=== PATIENT | male | born 1945 | race Caucasian/White ===

== ENCOUNTER 2017-12-26 07:54 | Day surgery (SDC) | payer OTHER ==
[2017-12-23 10:30] VITALS: BP 138/73
[2017-12-23 10:59] LABS: BASOPHILS % (AUTO) 0.7 % (0.0-5.0); EOSINOPHILS % (AUTO) 4.9 % (0.0-8.0); HEMATOCRIT 45.6 % (42-54); LYMPHOCYTES % (AUTO) 29.7 % (21.0-51.0); MEAN CORPUSCULAR HEMOGLOBIN 30.4 pg (27.0-33.0); MEAN CORPUSCULAR HGB CONC 32.9 g/dL (32.0-36.0); MEAN CORPUSCULAR VOLUME 92.5 fL (79-99); MONOCYTES % (AUTO) 11.9 % (3.0-13.0); NEUTROPHILS % (AUTO) 52.8 % (40.0-77.0); NUCLEATED RED BLOOD CELLS 0.1 % (0.0-0.19); PLATELET COUNT (AUTO) 207 K/uL (130-400); RED BLOOD CELL COUNT(AUTO) 4.93 MIL/uL (4.50-6.20); WHITE BLOOD COUNT (AUTO) 6.1 K/uL (4.8-10.8)
[2017-12-23 11:02] LABS: APPEARANCE,URINE Clear (CLEAR); BILIRUBIN,URINE Negative (NEGATIVE); COLOR,URINE Yellow (YELLOW); GLUCOSE, URINE (UA) Negative (NEGATIVE); KETONES,URINE Negative (NEGATIVE); LEUKOCYTE ESTERASE ,URINE Negative (NEGATIVE); NITRATE,URINE Negative (NEGATIVE); OCCULT BLOOD,URINE Negative (NEGATIVE); PROTEIN,URINE Negative (NEGATIVE); UROBILINOGEN,URINE 0.2 mg/dL (0.2-1.0)
[2017-12-23 11:14] LABS: CREATININE 1.1 mg/dL (0.5-1.5); POTASSIUM 5.3 mmol/L (3.5-5.1)
[2017-12-23 11:19] LABS: INR 0.95 (0.85-1.15)
[~2017-12-26] VITALS: Ht 188 cm; Wt 110.3 kg
[2017-12-26] VITALS (16 sets, daily range): BP systolic 105–127; BP diastolic 60–74
[2017-12-26] MEDS: CEFTRIAXONE SODIUM 1 GM IVP SCH ×2 (05:00→11:05)
[~2017-12-26 07:54] MED LIST: AEC81 PO; ALLO100T PO; GABA-531 PO; GENTAMICIN 80 MG/NS 100 ML PB 100 ML IV SCH; LISI-617 PO; MULT1TAB70 PO; SILO8CAP2 PO
[2017-12-26] MEDS ORDERED: LACTATED RINGERS 1000ML 1,000 ML IV ONE (08:39)
[2017-12-26] MEDS ORDERED: LIDOCAINE PF 2% 5ML ABBOJECT ONE (11:06)
[2017-12-26] MEDS ORDERED: DEXAMETHASONE SOD PHOSPHATE 10MG/ML 1ML VIAL ONE (11:06)
[2017-12-26] MEDS ORDERED: MIDAZOLAM HCL 1 MG/ML 2ML VIAL ONE (11:07)
[2017-12-26] MEDS ORDERED: PROPOFOL 10 MG/ML 20ML VIAL IV ONE (11:07)
[2017-12-26] MEDS ORDERED: ONDANSETRON HCL 4 MG/2 ML VIAL ONE (11:07)
[2017-12-26] MEDS ORDERED: FENTANYL CITRATE PF 50 MCG/1 ML 2ML VIAL ONE ×2 (11:07→13:44)
[2017-12-26] MEDS ORDERED: EPHEDRINE SULFATE 50 MG/ML AMPULE ONE (11:14)
[2017-12-26] MEDS ORDERED: ROCURONIUM BROMIDE 10MG/1ML 5ML VL ONE (11:15)
[2017-12-26] MEDS ORDERED: GLYCOPYRROLATE 1 MG/5 ML SYRINGE ONE (12:42)
[2017-12-26] MEDS ORDERED: NEOSTIGMINE 5MG/5ML SYR IV ONE (12:42)
[2017-12-26] MEDS ORDERED: MEPERIDINE-PF 25 MG/ML SYG ONE (13:16)
[2017-12-26] MEDS ORDERED: ACETAMINOPHEN 325 MG TAB ONE (15:33)
== END 2017-12-26 15:45 | disposition home or self-care (01) ==
LOC: DAH 07:54
PROVIDERS: ATTEND Urology
DX: N40.1 Benign prostatic hyperplasia with lower urinary tract symptoms (principal); I10 Essential (primary) hypertension; Z98.890 Other specified postprocedural states; E66.9 Obesity, unspecified; M48.061 Spinal stenosis, lumbar region without neurogenic claudication
CPT/HCPCS: 36415 ×2; 52648; 80048; 81003; 84132; 85025; 85610; 87088; 93005; A4354; A4358; A4510; J0696; J1100; J1580; J2001; J2175; J2250; J2405; J2704; J2710; J3010 ×2; J3490 ×3; J7120 ×2

== ENCOUNTER → 2018-06-03 | Outpatient (CLI) | payer OTHER ==
[~2018-06-03] MED LIST changes: -GENTAMICIN 80 MG/NS 100 ML PB 100 ML IV SCH
== END | disposition home or self-care (01) ==
LOC: SHCH 13:12
PROVIDERS: ATTEND Internal Medicine Cardiovascular Disease
DX: I87.2 Venous insufficiency (chronic) (peripheral) (principal)
CPT/HCPCS: 93970

== ENCOUNTER → 2018-06-09 | Outpatient (CLI) | payer OTHER ==
[~2018-06-09] MED LIST changes: +IOHEXOL-350 50ML VIAL IV ONE; +IOHEXOL-350 75 ML VIAL IV ONE
== END | disposition home or self-care (01) ==
LOC: RAH 07:59
PROVIDERS: ATTEND Internal Medicine Cardiovascular Disease
DX: K76.0 Fatty (change of) liver, not elsewhere classified (principal); I73.9 Peripheral vascular disease, unspecified; M25.461 Effusion, right knee; I70.0 Atherosclerosis of aorta
CPT/HCPCS: 75635; Q9967 ×2

== ENCOUNTER 2018-07-10 05:40 | Observation (INO) | payer OTHER ==
[2018-07-07 12:32] VITALS: BP 125/69
[2018-07-07 12:48] LABS: BASOPHILS % (AUTO) 1.4 % (0.0-5.0); EOSINOPHILS % (AUTO) 3.2 % (0.0-8.0); HEMATOCRIT 46.4 % (42-54); LYMPHOCYTES % (AUTO) 26.4 % (21.0-51.0); MEAN CORPUSCULAR HEMOGLOBIN 30.5 pg (27.0-33.0); MEAN CORPUSCULAR VOLUME 92.5 fL (79-99); MONOCYTES % (AUTO) 9.3 % (3.0-13.0); NEUTROPHILS % (AUTO) 59.7 % (40.0-77.0); NUCLEATED RED BLOOD CELLS 0.1 % (0.0-0.19); PLATELET COUNT (AUTO) 233 K/uL (130-400); RED BLOOD CELL COUNT(AUTO) 5.01 MIL/uL (4.50-6.20); RED CELL DISTRIBUTION WIDTH 13.6 % (11.0-15.5); WHITE BLOOD COUNT (AUTO) 6.5 K/uL (4.8-10.8)
[2018-07-07 12:58] LABS: POTASSIUM 4.7 mmol/L (3.5-5.1)
[2018-07-10] VITALS (25 sets, daily range): BP systolic 103–133; BP diastolic 54–79
[~2018-07-10] VITALS: Ht 185.4 cm; Wt 111.1 kg
[2018-07-10] MEDS: CEFAZOLIN SODIUM 1 GM VIAL IVP SCH ×2 (05:00→08:00)
[~2018-07-10 05:40] MED LIST changes: -IOHEXOL-350 50ML VIAL IV ONE; -IOHEXOL-350 75 ML VIAL IV ONE; -SILO8CAP2 PO
[2018-07-10] MEDS ORDERED: LACTATED RINGERS 1000ML 1,000 ML IV ONE (06:52)
[2018-07-10] MEDS ORDERED: SUCCINYLCHOLINE 200MG/10ML SYR ONE (06:56)
[2018-07-10] MEDS ORDERED: LIDOCAINE PF 2% 5ML ABBOJECT ONE (06:56)
[2018-07-10] MEDS ORDERED: DEXAMETHASONE SOD PHOSPHATE 10MG/ML 1ML VIAL ONE ×2 (06:57→07:00)
[2018-07-10] MEDS ORDERED: PROPOFOL 10 MG/ML 20ML VIAL IV ONE (06:57)
[2018-07-10] MEDS ORDERED: ONDANSETRON HCL 4 MG/2 ML VIAL ONE (06:57)
[2018-07-10] MEDS ORDERED: GLYCOPYRROLATE 1 MG/5 ML SYRINGE ONE (06:57)
[2018-07-10] MEDS ORDERED: NEOSTIGMINE 5MG/5ML SYR IV ONE (06:57)
[2018-07-10] MEDS ORDERED: THROMBIN-JMI 20000 UNIT KIT TP ONE (06:57)
[2018-07-10] MEDS ORDERED: MIDAZOLAM HCL 1 MG/ML 2ML VIAL ONE (06:57)
[2018-07-10] MEDS ORDERED: DURAMORPH PF1 MG/ML 10ML AMP IV ONE (06:57)
[2018-07-10] MEDS ORDERED: BUPIVACAINE/EPI/PF 0.25% 30ML VIAL IJ ONE (06:57)
[2018-07-10] MEDS ORDERED: BACITRACIN 50,000 UNIT VIAL ONE ×2 (06:57→11:22)
[2018-07-10] MEDS ORDERED: FENTANYL CITRATE PF 50 MCG/1 ML 2ML VIAL ONE ×3 (06:58→11:20)
[2018-07-10] MEDS ORDERED: ROCURONIUM 10MG/1ML SYR 10 MG/ML ML ONE (06:58)
--- NOTE | 2018-07-10 07:17 | NUR ---
PAIN pt denies pain at rest ,states has pain when ambulating and activities ,from buttock to toes Addendum: 07/10/18 at 0723 by MYNOR CARSON RN RN Amended: Links added.
[2018-07-10] MEDS ORDERED: ARTIFICIAL TEARS 3.5 GM OINTMENT ONE (08:21)
[2018-07-10] MEDS: LACTATED RINGERS 1000ML 1,000 ML IV SCH ×2 (11:53→23:30)
[2018-07-10] MEDS ORDERED: PROMETHAZINE HCL 25 MG/ML 1ML AMPULE IM PRN (12:00)
[2018-07-10] MEDS ORDERED: MORPHINE SULFATE 2 MG/ML 1ML SYG IVP PRN (12:00)
[2018-07-10] MEDS ORDERED: SODIUM CHLORIDE 0.9% 10 ML VIAL IVP PRN (12:00)
[2018-07-10] MEDS ORDERED: HYDROCODONE/ACETAMINOPHEN 5/325 MG TAB PO PRN (12:00)
[2018-07-10] MEDS ORDERED: CEFAZOLIN SODIUM 1 GM VIAL IVP SCH (12:00)
[2018-07-10] MEDS: DEXAMETHASONE SOD PHOSPHATE 4 MG/ML 1ML VIAL IVP SCH ×3 (12:00→23:28)
[2018-07-10 12:01] LABS: INR 1.01 (0.85-1.15); PARTIAL THROMBOPLASTIN TIME 28.7 SEC (26.3-35.5); PROTHROMBIN TIME 10.6 SEC (9.6-11.6)
[2018-07-10 12:07] LABS: HEMATOCRIT 39.3 % (42-54); PLATELET COUNT (AUTO) 216 K/uL (130-400)
[2018-07-10 12:13] LABS: PLATELET FUNCTION ANALYSIS EPI 68 SEC (55-192)
--- NOTE | 2018-07-10 15:00 | NUR ---
PAGED DR. DUMONT PAGED PATIENTS PRIMARY MD DR. CORA DUMONT REGARDING CONSULT
[2018-07-10] MEDS ORDERED: CICL34.62 TP (16:08)
[2018-07-10] MEDS ORDERED: LISI-617 PO (16:08)
[2018-07-10] MEDS ORDERED: IBUP-2076 PO (16:08)
[2018-07-10] MEDS ORDERED: LISI2.5T2 PO (16:12)
[2018-07-10] MEDS ORDERED: BENZOCAINE/MENTH/CETYLPYRD CL 1 EACH LOZENGE MM PRN ×2 (20:00→20:15)
--- NOTE | 2018-07-10 20:03 | NUR ---
DR. TIM DING HERE TO SEE PATIENT. STATES THAT ELEVATED D-DIMER POSSIBLY DUE TO SURGERY. NO FURTHER WORKUP ORDERED AT THIS TIME. DID STATE IT WAS OKAY TO DISCHARGE PATIENT FROM HER STANDPOINT.
[2018-07-10] MEDS: GABAPENTIN 300 MG CAPSULE PO SCH (20:16)
[2018-07-10] MEDS: ALLOPURINOL 100 MG TABLET PO SCH (20:16)
--- NOTE | 2018-07-10 20:30 | NUR ---
ACTIVITY AMBULATORY IN THE HALLWAY THE HALLWAY, STEADY GAIT, DRESSING LUMBAR AREA D/I, J/P TO BULB SUCTION WITH SMALL AMOUNT OF SEROS SANGUINOUS DRAINAGE , STEADY GAIT, TOLERATED WELL, BACK TO BED , F/C TO GRAVITY DRAINAGE WITH CLEAR YELLOW URINE
[2018-07-10] MEDS ORDERED: MULTIVITAMIN TABLET PO SCH (21:00)
[2018-07-10] MEDS ORDERED: ASPIRIN 81 MG EC TAB PO SCH (21:00)
--- NOTE | 2018-07-10 21:30 | NUR ---
activity ambulated in the hallway, steady gait, tolerated well, back to room
[2018-07-11 03:45] VITALS: BP 120/62
[2018-07-11 04:26] LABS: HEMATOCRIT 38.1 % (42-54); MEAN CORPUSCULAR HEMOGLOBIN 30.4 pg (27.0-33.0); MEAN CORPUSCULAR VOLUME 92.3 fL (79-99); NUCLEATED RED BLOOD CELLS 0.1 % (0.0-0.19); PLATELET COUNT (AUTO) 225 K/uL (130-400); RED BLOOD CELL COUNT(AUTO) 4.13 MIL/uL (4.50-6.20); RED CELL DISTRIBUTION WIDTH 13.2 % (11.0-15.5)
[2018-07-11] MEDS: DEXAMETHASONE SOD PHOSPHATE 4 MG/ML 1ML VIAL IVP SCH (06:14)
--- NOTE | 2018-07-11 06:15 | NUR ---
f/c f/c discontinued , dtv , instruct patient to call nurse when urge to void, patient verbalizes understanding via teach back, call gray at reach
[2018-07-11 08:00] VITALS: BP 124/66
[2018-07-11] MEDS ORDERED: LISINOPRIL 5 MG TABLET PO SCH (09:00)
[2018-07-11] MEDS: ALLOPURINOL 100 MG TABLET PO SCH (09:15)
[2018-07-11] MEDS: GABAPENTIN 300 MG CAPSULE PO SCH (09:16)
--- NOTE | 2018-07-11 12:00 | NUR ---
DISCHARGE DISCHARGE TEACHING DONE WITH PATIENT AND USING TEACHBACK METHOD, VERBALIZED UNDERSTANDING. NO NOTED SOB OR DISTRESS. PT AWARE OF NEED TO ATTEND DR. OLSEN APPOINTMENT, STAPLE REMOVAL KIT GIVEN TO . NEW MEDICATION ADMINISTRATION TEACHING DONE WITH PATIENT AND , VERBALIZED UNDERSTANDING. DRESSING TO LOWER BACK CHANGED PER DR. OLSEN ORDERS. INCISION IS DRY AND INTACT. BLAYNE REMOVED PER ORDERS, CATH TIP INTACT. DRESSING TEACHING DONE WITH PATIENT AND USING TEACHBACK METHOD, VERBALIZED UNDERSTANDING. IV REMOVED, CATH TIP INTACT. PENDING TO BE TRANSFERRED OUT VIA PRIVATE VEHICLE.
== END 2018-07-11 12:42 | disposition home or self-care (01) ==
LOC: DAHIP 05:40 → 4AH 12:38
PROVIDERS: ADMIT Neurological Surgery; ATTEND Neurological Surgery
DX: M48.061 Spinal stenosis, lumbar region without neurogenic claudication (principal); E78.5 Hyperlipidemia, unspecified; I10 Essential (primary) hypertension; I73.9 Peripheral vascular disease, unspecified; I87.2 Venous insufficiency (chronic) (peripheral)
CPT/HCPCS: 36415 ×3; 63047; 63048 ×2; 72020; 80048; 85025; 85027; 85378; 85384; 85576 ×2; 85610; 85730; 96374; 96375; 96376 ×2; A4218; A4344; A4510; A4600; A4649 ×4; G0378 ×32; J0330; J0690 ×2; J1100 ×5; J2001; J2250; J2274; J2405; J2704; J2710; J3010 ×3; J3490 ×2; J7030; J7120 ×3

== ENCOUNTER → 2022-04-09 | Outpatient (CLI) | payer MEDICARE ==
[~2022-04-09] MED LIST changes: +CICL34.62 TP; -LISI-617 PO; +LISI2.5T13 PO; -MULT1TAB70 PO
== END | disposition home or self-care (01) ==
LOC: RAH 11:40
PROVIDERS: ATTEND Internal Medicine
DX: M19.012 Primary osteoarthritis, left shoulder (principal)
CPT/HCPCS: 73030

== ENCOUNTER → 2022-10-10 | Outpatient (CLI) | payer MEDICARE | END | disposition home or self-care (01) | LOC: RAH 13:30 | PROVIDERS: ATTEND Internal Medicine | DX: Z01.818 Encounter for other preprocedural examination (principal); M47.815 Spondylosis without myelopathy or radiculopathy, thoracolumbar region | CPT/HCPCS: 71046 ==

== ENCOUNTER → 2022-11-23 | Outpatient (CLI) | payer MEDICARE | END | disposition home or self-care (01) | LOC: RAH 10:39 | PROVIDERS: ATTEND Orthopaedic Surgery | DX: M19.011 Primary osteoarthritis, right shoulder (principal) | CPT/HCPCS: 73030 ==

== ENCOUNTER → 2023-01-28 | Outpatient (CLI) | payer MEDICARE | END | disposition home or self-care (01) | LOC: RAH 13:16 | PROVIDERS: ATTEND Anesthesiology Pain Medicine | DX: M47.816 Spondylosis without myelopathy or radiculopathy, lumbar region (principal); M54.50 Low back pain, unspecified; M48.061 Spinal stenosis, lumbar region without neurogenic claudication; Z96.643 Presence of artificial hip joint, bilateral | CPT/HCPCS: 72114; 72220 ==